=== PATIENT | male | born 1960 | race Caucasian/White ===

== ENCOUNTER 2018-02-12 11:49 | Emergency (ER) | payer OTHER, MEDICARE ==
[2018-02-12 12:17] VITALS: BP 123/86; PULSE 77; RESP 18; TEMP 98.2
[2018-02-12] MEDS ORDERED: ORPHENADRINE 30 MG/ML 2 ML VIAL IM STA (13:57)
[2018-02-12] MEDS ORDERED: KETOROLAC 60 MG/2 ML VIAL IM STA (13:57)
--- NOTE | 2018-02-12 14:15 | XR ---
EXAM TYPE: LUMBAR SPINE X RAY SERIES COMPARISON: NONE HISTORY: Pain TECHNIQUE: 4 views are submitted. FINDINGS: Alignment is anatomic. The pedicles are intact. The transverse processes are intact. There is no s pondylolysis or spondylolisthesis. Multilevel hypertrophic change seen with degenerative disc diseas e L4-5, L5-S1. Multilevel facet arthropathy noted. No compression deformities. IMPRESSION: 1. Mild degenerative disc disease and facet arthropathy.
--- NOTE | 2018-02-12 14:19 | ED ---
Back Pain HPI - General Chief Complaint: Back Pain/Injury Stated Complaint: back pain Time Seen by Provider: 02/12/18 13:38 Source: patient Limitations: no limitations - History of Present Illness Initial Comments: 58-year-old male present emergency Department chief complaint low back pain. Patient states this started after leaving his doctor's office a few days ago. Patient does have a history of chronic back pain states that he usually gets injections 1 some year. Patient states that he's not had these recently. Patient states she's also had disc surgery in his lumbar region. Patient denies any bowel, bladder incontinence or retention. He states he only has pain with movement which makes it difficult to walk though he has no associated weakness. Denies any abdominal pain, flank pain, upper back pain, chest pain or shortness of breath. He states only does not take any pain medication but states that the pain is getting unbearable. He states he has pain areas on his left leg with mild numbness and tingling but denies any saddle anesthesias. - Related Data Home Medications Medication Instructions Recorded Confirmed Aspirin 325 mg PO DAILY 02/12/18 02/12/18 Atorvastatin Calcium [Lipitor] 20 mg PO HS 02/12/18 02/12/18 HYDROcodone/APAP 10-325MG [[place] 1 tab PO Q6HR PRN 02/12/18 02/12/18 10-325] Lisinopril [Prinivil] 5 mg PO DAILY 02/12/18 02/12/18 sitaGLIPtin PHOS/metFORMIN HCL 50 - 1,000 mg PO BID 02/12/18 02/12/18 [Janumet 50-1,000 mg Tablet] Previous Rx's Medication Instructions Recorded Hydrocodone/Acetaminophen [[place] 1 tab PO Q6HR PRN #12 tab 02/12/18 5-325] Ibuprofen [Motrin] 600 mg PO Q8HR PRN #30 tab 02/12/18 Orphenadrine [Norflex] 100 mg PO Q12H #14 tablet.er 02/12/18 Allergies Allergy/AdvReac Type Severity Reaction Status Date / Time No Known Allergies Allergy Verified 02/12/18 12:15 Review of Systems ROS Statement: Those systems with pertinent positive or pertinent negative responses have been documented in the HPI. ROS Other: All systems not noted in ROS Statement are negative. Past Medical History Past Medical History: No Reported History History of Any Multi-Drug Resistant Organisms: None Reported Past Surgical History: Back Surgery, Ear Surgery Past Psychological History: No Psychological Hx Reported Smoking Status: Former smoker Past Alcohol Use History: Rare Past Drug Use History: None Reported General Exam Limitations: no limitations General appearance: alert, in no apparent distress Head exam: Present: atraumatic, normocephalic, normal inspection Respiratory exam: Present: normal lung sounds bilaterally. Absent: respiratory distress, wheezes, rales, rhonchi, stridor Cardiovascular Exam: Present: regular rate, normal rhythm, normal heart sounds. Absent: systolic murmur, diastolic murmur, rubs, gallop, clicks GI/Abdominal exam: Present: soft, normal bowel sounds. Absent: distended, tenderness, guarding, rebound, rigid Extremities exam: Present: other (Bilateral lower extremity strength equal bilaterally, neurovascular intact to call equal warmth pedal pulses equal) Back exam: Present: full ROM, tenderness (Mild left lower lumbar region), paraspinal tenderness, other (Pain with left straight leg raise). Absent: CVA tenderness (R), CVA tenderness (L), vertebral tenderness Neurological exam: Present: alert, oriented X3, CN II-XII intact, reflexes normal. Absent: motor sensory deficit Skin exam: Present: warm, dry, intact, normal color. Absent: rash Course Vital Signs 02/12/18 12:15 Temperature 98.2 F Pulse Rate 77 Respiratory 18 Rate Blood Pressure 123/86 O2 Sat by Pulse 96 Oximetry Medical Decision Making - Medical Decision Making 58-year-old male presented for low back pain. Patient has acute lumbar strain with chronic changes noted on x-ray. He has no red flag symptoms. Patient we given pain control, muscle relaxers. Patient will follow-up with PCP and advised to follow-up for his injections of his lumbar spine. Disposition Clinical Impression: Acute exacerbation of chronic low back pain Disposition: HOME SELF-CARE Condition: Stable Instructions: Acute Low Back Pain (ED) Additional Instructions: Please return to the Emergency Department if symptoms worsen or any other concerns. Prescriptions: Hydrocodone/Acetaminophen [[place] 5-325] 1 tab PO Q6HR PRN #12 tab PRN Reason: Pain Ibuprofen [Motrin] 600 mg PO Q8HR PRN #30 tab PRN Reason: Pain Orphenadrine [Norflex] 100 mg PO Q12H #14 tablet.er Is patient prescribed a controlled substance at d/c from ED?: Yes When asked, does pt state using other controlled substances?: No If prescribed controlled substance>3 days was MAPS reviewed?: Prescribed <3 Days If opioid is for acute pain is fill amount 7 days or less?: Yes If Rx opioid, was Start Talking consent form obtained?: Yes Referrals: Carol Sanz MD [Primary Care Provider] - 1-2 days Time of Disposition: 14:23
== END 2018-02-12 14:47 | disposition home or self-care (01) ==
LOC: EC 11:49
DX: S39.012A Strain of muscle, fascia and tendon of lower back, initial encounter (principal); G89.29 Other chronic pain; M51.36 Other intervertebral disc degeneration, lumbar region; M46.96 Unspecified inflammatory spondylopathy, lumbar region; Z98.890 Other specified postprocedural states; Z87.891 Personal history of nicotine dependence; Z79.82 Long term (current) use of aspirin; Z79.84 Long term (current) use of oral hypoglycemic drugs; Z79.899 Other long term (current) drug therapy; X58.XXXA Exposure to other specified factors, initial encounter
CPT/HCPCS: 72110; 99283; 96372 ×2; J2360; J1885

== ENCOUNTER 2018-03-11 10:33 | Emergency (ER) | payer MEDICARE, OTHER ==
[2018-03-11 10:43] VITALS: BP 129/75; PULSE 79; TEMP 97.7
--- NOTE | 2018-03-11 11:00 | ED ---
URI HPI - General Chief Complaint: Upper Respiratory Infection Stated Complaint: cough Time Seen by Provider: 03/11/18 10:44 Source: patient, RN notes reviewed Mode of arrival: ambulatory Limitations: no limitations - History of Present Illness Initial Comments: 58-year-old male presents emergency Department with chief complaint of cough congestion. Patient states he has been sick for last 3 days. He does have underlying COPD. Patient denies any fever, chills, headache, dizziness. Patient states he does have mild nasal congestion, sore throat. Does state that is improving. Patient states his cough is nonproductive at this time. He does complain that his ribs hurt from coughing denies any nausea vomiting diarrhea constipation. Patient denies chest pain - Related Data Home Medications Medication Instructions Recorded Confirmed Aspirin 325 mg PO DAILY 02/12/18 02/12/18 Atorvastatin Calcium [Lipitor] 20 mg PO HS 02/12/18 02/12/18 HYDROcodone/APAP 10-325MG [[place] 1 tab PO Q6HR PRN 02/12/18 02/12/18 10-325] Lisinopril [Prinivil] 5 mg PO DAILY 02/12/18 02/12/18 sitaGLIPtin PHOS/metFORMIN HCL 50 - 1,000 mg PO BID 02/12/18 02/12/18 [Janumet 50-1,000 mg Tablet] Previous Rx's Medication Instructions Recorded Hydrocodone/Acetaminophen [[place] 1 tab PO Q6HR PRN #12 tab 02/12/18 5-325] Ibuprofen [Motrin] 600 mg PO Q8HR PRN #30 tab 02/12/18 Orphenadrine [Norflex] 100 mg PO Q12H #14 tablet.er 02/12/18 Azithromycin [Zithromax Z-pack] 0 mg PO DIRECTED #1 pack 03/11/18 predniSONE 50 mg PO DAILY #5 tab 03/11/18 Allergies Allergy/AdvReac Type Severity Reaction Status Date / Time No Known Allergies Allergy Verified 03/11/18 10:43 Review of Systems ROS Statement: Those systems with pertinent positive or pertinent negative responses have been documented in the HPI. ROS Other: All systems not noted in ROS Statement are negative. Past Medical History Past Medical History: No Reported History Additional Past Medical History / Comment(s): back pain History of Any Multi-Drug Resistant Organisms: None Reported Past Surgical History: Back Surgery, Ear Surgery Past Psychological History: No Psychological Hx Reported Smoking Status: Former smoker Past Alcohol Use History: Rare Past Drug Use History: None Reported General Exam Limitations: no limitations General appearance: alert, in no apparent distress Head exam: Present: atraumatic, normocephalic, normal inspection Eye exam: Present: normal appearance, PERRL, EOMI. Absent: scleral icterus, conjunctival injection, periorbital swelling ENT exam: Present: normal exam, normal oropharynx, mucous membranes moist, TM's normal bilaterally, normal external ear exam Neck exam: Present: normal inspection. Absent: tenderness, meningismus, lymphadenopathy Respiratory exam: Present: normal lung sounds bilaterally. Absent: respiratory distress, wheezes, rales, rhonchi, stridor Cardiovascular Exam: Present: regular rate, normal rhythm, normal heart sounds. Absent: systolic murmur, diastolic murmur, rubs, gallop, clicks GI/Abdominal exam: Present: soft, normal bowel sounds. Absent: distended, tenderness, guarding, rebound, rigid Back exam: Absent: CVA tenderness (R), CVA tenderness (L) Skin exam: Present: warm, dry, intact, normal color. Absent: rash Course Vital Signs 03/11/18 03/11/18 10:40 11:28 Temperature 97.7 F Pulse Rate 79 Respiratory 20 18 Rate Blood Pressure 129/75 O2 Sat by Pulse 98 Oximetry Medical Decision Making - Medical Decision Making 58-year-old male presented for cough congestion. Chest x-ray was obtained no acute abnormality. Patient we treated for mild COPD exacerbation/acute bronchitis. Patient placed on azithromycin and steroids. Return parameters were discussed. Disposition Clinical Impression: COPD (chronic obstructive pulmonary disease), Bronchitis Disposition: HOME SELF-CARE Condition: Stable Instructions: COPD (Chronic Obstructive Pulmonary Disease) (ED) Additional Instructions: Please return to the Emergency Department if symptoms worsen or any other concerns. Prescriptions: Azithromycin [Zithromax Z-pack] 0 mg PO DIRECTED #1 pack predniSONE 50 mg PO DAILY #5 tab Is patient prescribed a controlled substance at d/c from ED?: No Referrals: Carol Sanz MD [Primary Care Provider] - 1-2 days Time of Disposition: 12:00
[2018-03-11 11:33] VITALS: RESP 18
--- NOTE | 2018-03-11 11:37 | XR ---
EXAMINATION TYPE: XR chest 2V DATE OF EXAM: 03/11/2018 HISTORY: Cough. REFERENCE: Previous study dated 05/20/2015. FINDINGS: There is a partial eventration of the right hemidiaphragm and chronic elevation of the left hemidiaphragm. There is minimal atelectasis at the left lung base. This appears chronic. Lungs otherwise clear. Pleu ral space are clear. The heart is not enlarged. IMPRESSION: NO ACUTE INTRATHORACIC ABNORMALITY.
[2018-03-11] MEDS ORDERED: ACET/COD 300 MG/30 MG STARTER PACK 6 TAB BTL PO STA (12:03)
== END 2018-03-11 12:15 | disposition home or self-care (01) ==
LOC: EC 10:33
DX: J44.0 Chronic obstructive pulmonary disease with (acute) lower respiratory infection (principal); J44.1 Chronic obstructive pulmonary disease with (acute) exacerbation; J20.9 Acute bronchitis, unspecified; Z87.891 Personal history of nicotine dependence; Z79.82 Long term (current) use of aspirin; Z79.84 Long term (current) use of oral hypoglycemic drugs; Z79.899 Other long term (current) drug therapy; Z87.39 Personal history of other diseases of the musculoskeletal system and connective tissue
CPT/HCPCS: 71046; 99283

== ENCOUNTER → 2018-03-21 | Outpatient (CLI) | payer MEDICARE, OTHER ==
--- NOTE | 2018-03-21 09:07 | CTL ---
EXAMINATION TYPE: CT Low Dose Lung DATE OF EXAM ORDERED: 03/21/2018 HISTORY: Long-term tobacco use. Lung cancer screening CT DLP: 141.[address] CTDI: 4.3 mGy Automated exposure control for dose reduction was used. SCREENING VISIT: Initial study COMPARISON: None TECHNIQUE: Low dose computed tomography scan was performed through the chest at 1 mm thick sections a nd reconstructed images in the coronal plane at [address] DIAGNOSTIC QUALITY: Satisfactory FINDINGS: LUNG NODULES: None. LUNGS: COPD: Severity: Mild to borderline moderate Fibrosis: Severity: Minimal Lymph nodes: None Other findings: None BILATERAL PLEURAL SPACE: Effusion: None Calcification: None Thickening: None Pneumothorax: None HEART: Heart Size: Normal Coronary calcification: Moderate LAD and left circumflex Pericardial effusion: None OTHER FINDINGS: Upper abdomen: Visualized liver is diffusely hypodense consistent with fatty infiltration. Bony thorax: Mild to moderate multilevel lateral spurring Supraclavicular region: Visualized thyroid is small in size Other: Mild calcified plaque aortic arch IMPRESSION: No suspicious nodules or masses. FOLLOW UP CT CHEST RECOMMENDATION: Annual low-dose lung screening CT CT LUNG RAD: Lung-Rad 1 Negative Recommendation: Moderate coronary artery calcification, correlate clinically with additional cardiac risk factors.
== END | disposition home or self-care (01) ==
LOC: RADCTMAIN 08:02
PROVIDERS: ATTEND Internal Medicine
DX: Z12.2 Encounter for screening for malignant neoplasm of respiratory organs (principal); Z87.891 Personal history of nicotine dependence

== ENCOUNTER → 2018-11-30 | Outpatient (CLI) | payer OTHER, MEDICARE | END | disposition home or self-care (01) | LOC: LABWHC1 06:40 | PROVIDERS: ATTEND Internal Medicine Cardiovascular Disease | DX: E78.2 Mixed hyperlipidemia (principal) | CPT/HCPCS: 36415; 80061; 84450; 84460 ==

== ENCOUNTER → 2018-12-10 | Outpatient (CLI) | payer OTHER, MEDICARE ==
[2018-12-10 19:02] LABS: ALT 133 U/L (10-49); AST 83 U/L (14-35)
== END | disposition home or self-care (01) ==
LOC: LABWHC1 09:02
PROVIDERS: ATTEND Internal Medicine Cardiovascular Disease
DX: I10 Essential (primary) hypertension (principal)
CPT/HCPCS: 36415; 84450; 84460

== ENCOUNTER → 2019-01-02 | Outpatient (CLI) | payer OTHER, MEDICARE ==
--- NOTE | 2019-01-02 09:42 | US ---
EXAMINATION TYPE: US abdomen complete DATE OF EXAM: 01/02/2019 COMPARISON: US 2014 CLINICAL HISTORY: R74.8 Abnormal levels of other serum enzymes. Elevated liver enzymes, RUQ and back pain x couple months EXAM MEASUREMENTS: Liver Length: 19.5 cm Gallbladder Wall: 0.2 cm CBD: 0.4 cm Spleen: 12.4 cm Right Kidney: 11.4 x 5.9 x 6.3 cm Left Kidney: 11.4 x 6.9 x 5.0 cm Pancreas: visualized portions wnl, limited by overlying midline bowel gas Liver: There is increased echogenicity of the hepatic parenchyma with diminished visualization of th e portal triads most commonly relating to hepatic steatosis and limiting evaluation for underlying he patic masses. Gallbladder: wnl Evidence for sonographic Younger's sign: yes CBD: visualized portions wnl, limited by overlying bowel gas Spleen: wnl Right Kidney: wnl Left Kidney: wnl Upper IVC: wnl Abd Aorta: Within normal limits The intrahepatic portion of the IVC and proximal abdominal aorta are within normal limits. There is no evidence of cholelithiasis. Common bile duct is unremarkable. The visualized portions of the munoz creas are homogenous. The spleen is unremarkable. Kidneys are symmetric and free of hydronephrosis. No renal lesions are seen. IMPRESSION: 1. Sonographic findings most commonly related to hepatic steatosis as seen on the prior ultrasound of 2014. 2. No sonographic evidence of cholelithiasis nor acute cholecystitis. Positive sonographic Younger sig n is seen however and therefore HIDA scan with CCK could evaluate for biliary dyskinesia or chronic c holecystitis.
[2019-01-02 09:44] LABS: HCT 47.1 % (39.0-53.0); HGB 15.7 gm/dL (13.0-17.5); MCH 30.6 pg (25.0-35.0); MCHC 33.2 g/dL (31.0-37.0); MCV 92.1 fL (80.0-100.0); Mean Platelet Volume 8.4; Platelet Count 170 k/uL (150-450); RBC 5.11 m/uL (4.30-5.90); RDW 12.6 % (11.5-15.5); WBC 5.9 k/uL (3.8-10.6)
[2019-01-02 10:04] LABS: ALT 142 U/L (21-72); AST 75 U/L (17-59); African American GFR (CKD) >90 (>60 ml/min/1.73 sqM); Albumin 4.2 g/dL (3.5-5.0); Alkaline Phosphatase 119 U/L (38-126); Anion Gap 8 mmol/L; Bilirubin, Delta 0.1 mg/dL (0.0-0.2); Bilirubin,Unconjugated 0.4 mg/dL (0.0-1.1); Blood Urea Nitrogen 10 mg/dL (9-20); Calcium 9.7 mg/dL (8.4-10.2); Carbon Dioxide 29 mmol/L (22-30); Chloride 104 mmol/L (98-107); Glucose 99 mg/dL (74-99); Potassium 4.7 mmol/L (3.5-5.1); Sodium 141 mmol/L (137-145); Total Bilirubin 0.5 mg/dL (0.2-1.3); Total Protein 7.1 g/dL (6.3-8.2)
[2019-01-02 15:37] LABS: Hepatitis A Antibody IgM Non-Reactive (Non-Reactive); Hepatitis B Core IgM Non-Reactive (Non-Reactive); Hepatitis B Surface Antigen Non-Reactive (Non-Reactive); Hepatitis C IgG Antibody Non-Reactive (Non-Reactive)
[2019-01-02 16:33] LABS: % Iron Saturation 26.54 (15.00-50.00); Iron 82 ug/dL (65-175); Total Iron Binding Capacity 309 ug/dL (228-460)
[2019-01-02 16:41] LABS: Ferritin 115.9 ng/mL (22.0-322.0)
[2019-01-02 18:06] LABS: Protein, Total 6.4 g/dL (6.2-8.2)
[2019-01-02 18:35] LABS: Gliadin AB IgA, Deaminated NEGATIVE (NEGATIVE); Gliadin AB IgA, Unit <0.2 U/mL; Gliadin AB IgG, Deaminated NEGATIVE (NEGATIVE)
[2019-01-03 11:10] LABS: Liver/Kidney Microsome Antibod 3.4 UNITS (<=20)
[2019-01-03 12:21] LABS: Ceruloplasmin 22.9 mg/dL (20.0-60.0)
[2019-01-03 13:38] LABS: Albumin 3.65 g/dL (3.80-4.90); Gamma Globulin 0.73 g/dL (0.70-1.50)
== END | disposition home or self-care (01) ==
LOC: RADUSWWP 08:07
PROVIDERS: ATTEND Internal Medicine
DX: K76.0 Fatty (change of) liver, not elsewhere classified (principal); R74.8 Abnormal levels of other serum enzymes
CPT/HCPCS: 36415; 76700; 80048; 80074; 80076; 82103; 82390; 82728; 83516; 83540; 83550; 84165; 85027; 86376

== ENCOUNTER 2019-06-07 08:30 | Emergency (ER) | payer OTHER, MEDICARE ==
[2019-06-07 08:38] VITALS: RESP 18; TEMP 98.1
[2019-06-07] MEDS ORDERED: KETOROLAC 60 MG/2 ML VIAL IVP STA (08:57)
--- NOTE | 2019-06-07 09:02 | ED ---
General Adult HPI - General Chief complaint: Chest Pain Stated complaint: back and side pain Time Seen by Provider: 06/07/19 08:35 Source: patient, RN notes reviewed, old records reviewed Mode of arrival: ambulatory Limitations: no limitations - History of Present Illness Initial comments: This is a 59-year-old male with past medical history significant for diabetes hypertension high cholesterol. Patient states for a week now he's been having mid back pain and lateral chest wall pain as well as some reproducible chest pain in the center next to his sternum bilaterally. Patient states all the pain is reproducible and all of the pain is worse with movement or bending. Patient states she's not short of breath. Patient states she's had no fever or chills. Patient denies any injury or heavy lifting. Patient states if he takes a hot shower it does improve the pain. Patient also states BenGay seemed to improve the pain. Patient is not taking any Tylenol or Motrin. Patient denies any headache patient denies numbness weakness. Patient denies any abdominal pain patient denies nausea vomiting diarrhea. patient states the pain is consistent and does not go away but does wax and wane. - Related Data Home Medications Medication Instructions Recorded Confirmed Aspirin 325 mg PO DAILY 02/12/18 02/12/18 Atorvastatin Calcium [Lipitor] 20 mg PO HS 02/12/18 02/12/18 HYDROcodone/APAP 10-325MG [[place] 1 tab PO Q6HR PRN 02/12/18 02/12/18 10-325] Lisinopril [Prinivil] 5 mg PO DAILY 02/12/18 02/12/18 sitaGLIPtin PHOS/metFORMIN HCL 50 - 1,000 mg PO BID 02/12/18 02/12/18 [Janumet 50-1,000 mg Tablet] Previous Rx's Medication Instructions Recorded Hydrocodone/Acetaminophen [[place] 1 tab PO Q6HR PRN #12 tab 02/12/18 5-325] Ibuprofen [Motrin] 600 mg PO Q8HR PRN #30 tab 02/12/18 Orphenadrine [Norflex] 100 mg PO Q12H #14 tablet.er 02/12/18 Azithromycin [Zithromax Z-pack] 0 mg PO DIRECTED #1 pack 03/11/18 predniSONE 50 mg PO DAILY #5 tab 03/11/18 Ketorolac [Toradol] 10 mg PO Q6HR #15 tab 06/07/19 Allergies Allergy/AdvReac Type Severity Reaction Status Date / Time No Known Allergies Allergy Verified 06/07/19 08:38 Review of Systems ROS Statement: Those systems with pertinent positive or pertinent negative responses have been documented in the HPI. ROS Other: All systems not noted in ROS Statement are negative. Past Medical History Past Medical History: No Reported History, Dementia, Hypertension Additional Past Medical History / Comment(s): back pain History of Any Multi-Drug Resistant Organisms: None Reported Past Surgical History: Back Surgery, Ear Surgery Past Psychological History: No Psychological Hx Reported Smoking Status: Former smoker Past Alcohol Use History: Rare Past Drug Use History: None Reported General Exam - General Exam Comments Initial Comments: GENERAL: Patient is well-developed and well-nourished. Patient is nontoxic and well- hydrated and is in mild distress. ENT: Neck is soft and supple. No significant lymphadenopathy is noted. Oropharynx is clear. Moist mucous membranes. Neck has full range of motion without eliciting any pain. EYES: The sclera were anicteric and conjunctiva were pink and moist. Extraocular movements were intact and pupils were equal round and reactive to light. Eyelids were unremarkable. PULMONARY: Unlabored respirations. Good breath sounds bilaterally. No audible rales rh onchi or wheezing was noted. CARDIOVASCULAR: There is a regular rate and rhythm without any murmurs gallops or rubs. Patient has reproducible chest pain on both sides of the sternum as well as in the lateral chest wall. Patient also has pain in the thoracic back region lateral to the spine. ABDOMEN: Soft and nontender with normal bowel sounds. No palpable organomegaly was noted. There is no palpable pulsatile mass. SKIN: Skin is clear with no lesions or rashes and otherwise unremarkable. NEUROLOGIC: Patient is alert and oriented x3. Cranial nerves II through XII are grossly intact. Motor and sensory are also intact. Normal speech, volume and content. Symmetrical smile. MUSCULOSKELETAL: Normal extremities with adequate strength and full range of motion. No lower extremity swelling or edema. No calf tenderness. Reproducible pain as above LYMPHATICS: No significant lymphadenopathy is noted PSYCHIATRIC: Normal psychiatric evaluation. 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 Patient's EKG shows no ST segment elevation or depression. I gave the patient a shot of Toradol and he stated it made his symptoms almost completely go away. Patient states he hasn't taken any medications at home. I will send the patient home on any anti-inflammatory. - Lab Data Result diagrams: 06/07/19 08:45 06/07/19 08:45 Lab Results 06/07/19 06/07/19 06/07/19 Range/Units 08:45 08:45 08:45 WBC 7.6 (3.8-10.6) k/uL RBC 5.41 (4.30-5.90) m/uL Hgb 16.5 (13.0-17.5) gm/dL Hct 49.2 (39.0-53.0) % MCV 90.8 (80.0-100.0) fL MCH 30.5 (25.0-35.0) pg MCHC 33.5 (31.0-37.0) g/dL RDW 12.7 (11.5-15.5) % Plt Count 129 L (150-450) k/uL Neutrophils % 48 % Lymphocytes % 40 % Monocytes % 6 % Eosinophils % 4 % Basophils % 1 % Neutrophils # 3.6 (1.3-7.7) k/uL Lymphocytes # 3.1 (1.0-4.8) k/uL Monocytes # 0.4 (0-1.0) k/uL Eosinophils # 0.3 (0-0.7) k/uL Basophils # 0.0 (0-0.2) k/uL PT 10.1 (9.0-12.0) sec INR 1.0 (<1.2) APTT 25.3 (22.0-30.0) sec Sodium 136 L (137-145) mmol/L Potassium 4.5 (3.5-5.1) mmol/L Chloride 101 (98-107) mmol/L Carbon Dioxide 25 (22-30) mmol/L Anion Gap 10 mmol/L BUN 13 (9-20) mg/dL Creatinine 0.85 (0.66-1.25) mg/dL Est GFR (CKD-EPI)AfAm >90 (>60 ml/min/1.73 sqM) Est GFR (CKD-EPI)NonAf >90 (>60 ml/min/1.73 sqM) Glucose 157 H (74-99) mg/dL Calcium 9.5 (8.4-10.2) mg/dL Magnesium 2.0 (1.6-2.3) mg/dL Total Bilirubin 0.4 (0.2-1.3) mg/dL AST 70 H (17-59) U/L ALT 145 H (4-49) U/L Alkaline Phosphatase 134 H (38-126) U/L Troponin I (0.000-0.034) ng/mL Total Protein 7.5 (6.3-8.2) g/dL Albumin 4.5 (3.5-5.0) g/dL 06/07/19 Range/Units 08:45 WBC (3.8-10.6) k/uL RBC (4.30-5.90) m/uL Hgb (13.0-17.5) gm/dL Hct (39.0-53.0) % MCV (80.0-100.0) fL MCH (25.0-35.0) pg MCHC (31.0-37.0) g/dL RDW (11.5-15.5) % Plt Count (150-450) k/uL Neutrophils % % Lymphocytes % % Monocytes % % Eosinophils % % Basophils % % Neutrophils # (1.3-7.7) k/uL Lymphocytes # (1.0-4.8) k/uL Monocytes # (0-1.0) k/uL Eosinophils # (0-0.7) k/uL Basophils # (0-0.2) k/uL PT (9.0-12.0) sec INR (<1.2) APTT (22.0-30.0) sec Sodium (137-145) mmol/L Potassium (3.5-5.1) mmol/L Chloride (98-107) mmol/L Carbon Dioxide (22-30) mmol/L Anion Gap mmol/L BUN (9-20) mg/dL Creatinine (0.66-1.25) mg/dL Est GFR (CKD-EPI)AfAm (>60 ml/min/1.73 sqM) Est GFR (CKD-EPI)NonAf (>60 ml/min/1.73 sqM) Glucose (74-99) mg/dL Calcium (8.4-10.2) mg/dL Magnesium (1.6-2.3) mg/dL Total Bilirubin (0.2-1.3) mg/dL AST (17-59) U/L ALT (4-49) U/L Alkaline Phosphatase (38-126) U/L Troponin I <0.012 (0.000-0.034) ng/mL Total Protein (6.3-8.2) g/dL Albumin (3.5-5.0) g/dL Disposition Clinical Impression: Musculoskeletal chest pain Disposition: HOME SELF-CARE Condition: Good Instructions (If sedation given, give patient instructions): Chest Pain (ED) Prescriptions: Ketorolac [Toradol] 10 mg PO Q6HR #15 tab Is patient prescribed a controlled substance at d/c from ED?: No Referrals: Carol Sanz MD [Primary Care Provider] - 1-2 days Time of Disposition: 10:30
--- NOTE | 2019-06-07 09:27 | XR ---
EXAMINATION TYPE: XR chest 2V DATE OF EXAM: 06/07/2019 COMPARISON: 03/11/2018 HISTORY: Shortness of breath TECHNIQUE: Frontal and lateral views of the chest are obtained. FINDINGS: Scattered senescent parenchymal changes noted. Hyperinflation compatible with COPD. No evidence for infiltrate. No evidence for atelectasis. Heart size is stable. Mediastinal structures are stable and grossly unremarkable. No evidence for hilar prominence. Degenerative changes dorsal spine. IMPRESSION: 1. No evidence for acute pulmonary disease.
[2019-06-07 09:29] LABS: Basophils % (A) 1 %; Eosinophils # (A) 0.3 k/uL (0-0.7); Eosinophils % (A) 4 %; HCT 49.2 % (39.0-53.0); HGB 16.5 gm/dL (13.0-17.5); Lymphocytes # (A) 3.1 k/uL (1.0-4.8); Lymphocytes % (A) 40 %; MCH 30.5 pg (25.0-35.0); MCHC 33.5 g/dL (31.0-37.0); MCV 90.8 fL (80.0-100.0); Mean Platelet Volume 9.1; Monocytes # (A) 0.4 k/uL (0-1.0); Monocytes % (A) 6 %; Neutrophils # (A) 3.6 k/uL (1.3-7.7); Neutrophils % (A) 48 %; Platelet Count 129 k/uL (150-450); RBC 5.41 m/uL (4.30-5.90); RDW 12.7 % (11.5-15.5); WBC 7.6 k/uL (3.8-10.6)
[2019-06-07 09:40] LABS: ALT 145 U/L (4-49); AST 70 U/L (17-59); African American GFR (CKD) >90 (>60 ml/min/1.73 sqM); Albumin 4.5 g/dL (3.5-5.0); Alkaline Phosphatase 134 U/L (38-126); Anion Gap 10 mmol/L; Blood Urea Nitrogen 13 mg/dL (9-20); Calcium 9.5 mg/dL (8.4-10.2); Carbon Dioxide 25 mmol/L (22-30); Chloride 101 mmol/L (98-107); Glucose 157 mg/dL (74-99); Non-African American GFR(CKD) >90 (>60 ml/min/1.73 sqM); Potassium 4.5 mmol/L (3.5-5.1); Sodium 136 mmol/L (137-145); Total Bilirubin 0.4 mg/dL (0.2-1.3); Total Protein 7.5 g/dL (6.3-8.2)
[2019-06-07 09:47] LABS: Partial Thromboplastin Time 25.3 sec (22.0-30.0); Prothrombin Time 10.1 sec (9.0-12.0)
[2019-06-07 10:37] VITALS: BP 127/80; PULSE 74
== END 2019-06-07 10:32 | disposition home or self-care (01) ==
LOC: EC 08:30
DX: R07.9 Chest pain, unspecified (principal); M54.9 Dorsalgia, unspecified; I10 Essential (primary) hypertension; Z79.82 Long term (current) use of aspirin; Z79.899 Other long term (current) drug therapy; Z87.891 Personal history of nicotine dependence
CPT/HCPCS: 36415; 93005; 80053; 83735; 84484; 85025; 85610; 85730; 71046; 99285; 96374; J1885

== ENCOUNTER → 2021-03-26 | Outpatient (CLI) | payer OTHER ==
--- NOTE | 2021-03-27 02:54 | MR ---
EXAMINATION TYPE: MR brain wo/w con DATE OF EXAM: 03/26/2021 COMPARISON: None HISTORY: Visual disturbance, left side head pain, family hx malignant neoplasm. CONTRAST: Standard multiplanar, multisequence MRI departmental protocol images were obtained without contrast a nd with 11 mL intravenous Gadavist gadolinium contrast. Ventricles have fairly normal size. There is no mass effect or midline shift. There is no evidence of intracranial hemorrhage. There is minimal atrophy appropriate for age. Diffusion images show no evid ence of acute infarct. On the T2 and FLAIR images there are scattered foci of increased signal measuring up to 4 mm in the g ray-white matter junction of both cerebral hemispheres. Total number is approximately 10. The brainst em is intact. Corpus callosum appears intact and sella turcica appears normal. There is no evidence o f orbital mass. There is moderate mucosal thickening in the paranasal sinuses. The contrast images show no pathologic enhancement. There is normal enhancement of the venous sinuses . IMPRESSION: There are scattered small white matter high signal foci that could relate to microvascular ischemia. No evidence of cortical infarct. There is pansinusitis.
== END | disposition home or self-care (01) ==
LOC: RADMRIMAIN 18:24
PROVIDERS: ATTEND Nurse Practitioner Family
DX: J32.4 Chronic pansinusitis (principal); R90.89 Other abnormal findings on diagnostic imaging of central nervous system; Z80.8 Family history of malignant neoplasm of other organs or systems
CPT/HCPCS: 70553; A9585

== ENCOUNTER → 2023-01-25 | Outpatient (CLI) | payer MEDICARE ==
--- NOTE | 2023-01-25 14:26 | US ---
EXAMINATION TYPE: US abdomen complete DATE OF EXAM: 01/25/2023 COMPARISON: 01/02/2019 CLINICAL INDICATION: Male, 63 years old with history of R10.12 LUQ PAIN, R10.11 RUQ PIAN; Pain x 1 we ek within RUQ and LUQ. TECHNIQUE: Multiple sonographic images of the abdomen are obtained. FINDINGS: EXAM MEASUREMENTS: Liver Length: 18.3 cm Gallbladder Wall: 0.21 cm CBD: 0.26 cm Spleen: 11.9 cm Right Kidney: 11.7 x 5.9 x 6.4 cm Left Kidney: 11.9 x 5.5 x 7.7 cm MACHINE PULLER NOTES: Limited due to overlying bowel gas. Pancreas: Not well seen Liver: Enlarged. No focal lesion seen. Gallbladder: Multiple folds seen. Slightly limited. Evidence for sonographic Younger's sign: No CBD: Appears wnl Spleen: Appears wnl Right Kidney: No hydronephrosis or masses seen Left Kidney: No hydronephrosis or masses seen Upper IVC: Appears wnl Abd Aorta: Proximal segment appears ectatic measuring 2.6 x 2.9 cm. Distal aorta and iliacs were obs cured. IMPRESSION: 1. Mild hepatomegaly at 18.3 cm. The previous fatty infiltration seen in 2019 appears to have definit jeramie improved. 2. No gallstones or biliary ductal dilatation. 3. 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
== END | disposition home or self-care (01) ==
LOC: RADUSWWP 13:19
PROVIDERS: ATTEND Family Medicine
DX: I77.811 Abdominal aortic ectasia (principal); K76.0 Fatty (change of) liver, not elsewhere classified; R16.0 Hepatomegaly, not elsewhere classified; R10.12 Left upper quadrant pain; R10.11 Right upper quadrant pain
CPT/HCPCS: 76700

== ENCOUNTER 2023-12-20 10:57 | Observation (INO) | payer BC, MEDICARE ==
[2023-12-20 11:41] LABS: Basophils % (A) 0 %; Eosinophils # (A) 0.2 k/uL (0-0.7); Eosinophils % (A) 3 %; HCT 46.3 % (39.0-53.0); HGB 15.3 gm/dL (13.0-17.5); Lymphocytes # (A) 1.6 k/uL (1.0-4.8); Lymphocytes % (A) 20 %; MCH 31.9 pg (25.0-35.0); MCHC 33.1 g/dL (31.0-37.0); MCV 96.4 fL (80.0-100.0); Mean Platelet Volume 10.7; Monocytes # (A) 0.5 k/uL (0-1.0); Monocytes % (A) 6 %; Neutrophils # (A) 5.9 k/uL (1.3-7.7); Neutrophils % (A) 71 %; WBC 8.4 k/uL (3.8-10.6)
--- NOTE | 2023-12-20 11:46 | XR ---
EXAMINATION TYPE: XR chest 2V DATE OF EXAM: 12/20/2023 COMPARISON: 06/07/2019 TECHNIQUE: PA and lateral views submitted. HISTORY: Chest pain FINDINGS: The lungs are clear and there is no pneumothorax, pleural effusion, or focal pneumonia. Heart size normal and no overt failure. Osseous structures demonstrate hypertrophic and degenerative changes of the spine. IMPRESSION: 1. No acute process. [facility], , 12/20/2023 11:43 AM
--- NOTE | 2023-12-20 11:58 | ED ---
General Adult HPI - General Chief complaint: Recheck/Abnormal Lab/Rx Stated complaint: Heart blockage Time Seen by Provider: 12/20/23 11:13 Source: patient, RN notes reviewed, old records reviewed Mode of arrival: ambulatory Limitations: no limitations - History of Present Illness Initial comments: 63-year-old male presents emergency department chief complaint of abnormal stress test. Patient states he had a nuclear stress test yesterday at cardiology along with an echocardiogram. Patient states he received a phone call yesterday afternoon stating that it was abnormal and he needed to present to the emergency department. Patient states he does present today he did have an episode of chest pain which she took 2 full dose aspirin and symptoms re solved. Patient has a history of hyperlipidemia hypertension diabetes along with current smoking status. Patient does admit that he has COPD does not have any shortness of breath. Denies any leg pain or leg swelling. Patient has had no prior cardiac stents. - Related Data Home Medications Medication Instructions Recorded Confirmed lisinopriL [Prinivil] 5 mg PO DAILY 02/12/18 06/07/19 sitaGLIPtin PHOS/metFORMIN HCL 1 tab PO BID 02/12/18 06/07/19 [Janumet 50-1,000 mg Tablet] Aspirin 325 mg PO HS 06/07/19 06/07/19 Allergies Allergy/AdvReac Type Severity Reaction Status Date / Time No Known Allergies Allergy Verified 12/20/23 11:10 Review of Systems ROS Statement: Those systems with pertinent positive or pertinent negative responses have been documented in the HPI. ROS Other: All systems not noted in ROS Statement are negative. Past Medical History Past Medical History: No Reported History, Dementia, Hypertension Additional Past Medical History / Comment(s): back pain History of Any Multi-Drug Resistant Organisms: None Reported Past Surgical History: Back Surgery, Ear Surgery Past Psychological History: No Psychological Hx Reported Smoking Status: Current every day smoker Past Alcohol Use History: Occasional Past Drug Use History: None Reported, Marijuana General Exam Limitations: no limitations General appearance: alert, in no apparent distress Head exam: Present: atraumatic, normocephalic, normal inspection Eye exam: Present: normal appearance, PERRL, EOMI. Absent: scleral icterus, conjunctival injection, periorbital swelling ENT exam: Present: normal exam, normal oropharynx, mucous membranes moist Neck exam: Present: normal inspection, full ROM. Absent: tenderness, meningismus, lymphadenopathy Respiratory exam: Present: normal lung sounds bilaterally. Absent: respiratory distress, wheezes, rales, rhonchi, stridor Cardiovascular Exam: Present: regular rate, normal rhythm, normal heart sounds. Absent: systolic murmur, diastolic murmur, rubs, gallop, clicks Neurological exam: Present: alert, oriented X3, CN II-XII intact, reflexes normal. Absent: motor sensory deficit Skin exam: Present: warm, dry, intact, normal color. Absent: rash Course Vital Signs 12/20/23 12/20/23 11:06 12:27 Temperature 97 F L Pulse Rate 72 66 Respiratory 18 18 Rate Blood Pressure 142/72 146/78 O2 Sat by Pulse 98 97 Oximetry EKG Findings - EKG Comments: EKG Findings:: EKG performed at 11: 18 sinus rhythm with a rate of 75 FL 150 QRS 98 QT/QTc 351/380 - EKG Results: EKG: interpreted by MARBELLA Medical Decision Making - Medical Decision Making Was pt. sent in by a medical professional or institution (Dr. PA, DIE TRIPPER, urgent c are, hospital, or [facility]...) When possible be specific @ -Cardiology Did you speak to anyone other than the patient for history (EMS, parent, family, police, friend...)? What history was obtained from this source @ -No Did you review nursing and triage notes (agree or disagree)? Why? @ -I reviewed and agree with nursing and triage notes Were old charts reviewed (outside hosp., previous admission, EMS record, old EKG, old radiological studies, urgent care reports/EKG's, [facility] records)? Report findings @ -No old charts were reviewed Differential Diagnosis (chest pain, altered mental status, abdominal pain women, abdominal pain men, vaginal bleeding, weakness, fever, dyspnea, syncope, headache, dizziness, GI bleed, back pain, seizure, CVA, palpatations, mental health, musculoskeletal)? @ -Differential Chest Pain: Stable Angina, Unstable Angina, STEMI, NSTEMI Aortic Dissection, Pneumothorax, Musculoskeletal, Esophageal Spasm GERD, Cholecystitis, Pancreatitis, Zoster, this is not meant to be an all-inclusive list. EKG interpreted by me (3pts min.). @ -As above X-rays interpreted by me (1pt min.). @ -Chest x-ray shows no acute cardiopulmonary process CT interpreted by me (1pt min.). @ -None done U/S interpreted by me (1pt. min.). @ -None done What testing was considered but not performed or refused? (CT, X-rays, U/S, labs)? Why? @ -None What meds were considered but not given or refused? Why? @ -None Did you discuss the management of the patient with other professionals (professionals i.e. , PA, DIE TRIPPER, lab, RT, psych nurse, director social, shoemaking finisher, teacher, fisheries technical officer, case managers)? Give summary @ - She for admission with cardiology consult Was smoking cessation discussed for >3mins.? @ -No Was critical care preformed (if so, how long)? @ -No Were there social determinants of health that impacted care today? How? (Homelessness, low income, unemployed, alcoholism, drug addiction, transportation, low edu. Level, literacy, decrease access to med. care, fci, rehab)? @ -No Was there de-escalation of care discussed even if they declined (Discuss DNR or withdrawal of care, Hospice)? DNR status @ -No What co-morbidities impacted this encounter? (DM, HTN, Smoking, COPD, CAD, Cancer, CVA, ARF, Chemo, Hep., AIDS, mental health diagnosis, sleep apnea, morbid obesity)? @ -None Was patient admitted / discharged? Hospital course, mention meds given and route, prescriptions, significant lab abnormalities, going to OR and other pertinent info. @ -Admitted patient had abnormal stress test yesterday. Patient is currently asymptomatic laboratory studies unremarkable EKG shows no acute changes. Patient is admitted Undiagnosed new problem with uncertain prognosis? @ -No Drug Therapy requiring intensive monitoring for toxicity (Heparin, Nitro, Insulin, Cardizem)? @ -No Were any procedures done? @ -No Diagnosis/symptom? @ -Chest pain, abnormal stress test Acute, or Chronic, or Acute on Chronic? @ -Acute Uncomplicated (without systemic symptoms) or Complicated (systemic symptoms)? @ -Complicated Side effects of treatment? @ -No Exacerbation, Progression, or Severe Exacerbation? @ -No Poses a threat to life or bodily function? How? (Chest pain, [place], [place], pneumonia, PE, COPD, DKA, ARF, appy, cholecystitis, CVA, Diverticulitis, Homicidal, Suicidal, threat to staff... and all critical care pts) @ -Yes possible underlying ACS, causing cardiac arrest - Lab Data Result diagrams: 12/20/23 11:30 12/20/23 11:30 Lab Results 12/20/23 12/20/23 12/20/23 Range/Units 11:30 11:30 11:30 WBC 8.4 (3.8-10.6) k/uL RBC 4.80 (4.30-5.90) m/uL Hgb 15.3 (13.0-17.5) gm/dL Hct 46.3 (39.0-53.0) % MCV 96.4 (80.0-100.0) fL MCH 31.9 (25.0-35.0) pg MCHC 33.1 (31.0-37.0) g/dL RDW 13.0 (11.5-15.5) % Plt Count 95 L (150-450) k/uL MPV 10.7 Neutrophils % 71 % Lymphocytes % 20 % Monocytes % 6 % Eosinophils % 3 % Basophils % 0 % Neutrophils # 5.9 (1.3-7.7) k/uL Lymphocytes # 1.6 (1.0-4.8) k/uL Monocytes # 0.5 (0-1.0) k/uL Eosinophils # 0.2 (0-0.7) k/uL Basophils # 0.0 (0-0.2) k/uL Manual Slide Review Performed PT 10.7 (10.0-12.5) sec INR 1.0 (<1.2) APTT 27.0 (22.0-30.0) sec Sodium 136 L (137-145) mmol/L Potassium 4.0 (3.5-5.1) mmol/L Chloride 102 (98-107) mmol/L Carbon Dioxide 26 (22-30) mmol/L Anion Gap 8 mmol/L BUN 9 (9-20) mg/dL Creatinine 0.81 (0.66-1.25) mg/dL Est GFR (CKD-EPI)AfAm >90 (>60 ml/min/1.73 sqM) Est GFR (CKD-EPI)NonAf >90 (>60 ml/min/1.73 sqM) Glucose 132 H (74-99) mg/dL Calcium 9.2 (8.4-10.2) mg/dL Magnesium 1.9 (1.6-2.3) mg/dL Total Bilirubin 0.4 (0.2-1.3) mg/dL AST 20 (17-59) U/L ALT 17 (4-49) U/L Alkaline Phosphatase 111 (38-126) U/L Troponin I (0.000-0.034) ng/mL Total Protein 6.4 (6.3-8.2) g/dL Albumin 4.0 (3.5-5.0) g/dL 12/20/23 Range/Units 11:30 WBC (3.8-10.6) k/uL RBC (4.30-5.90) m/uL Hgb (13.0-17.5) gm/dL Hct (39.0-53.0) % MCV (80.0-100.0) fL MCH (25.0-35.0) pg MCHC (31.0-37.0) g/dL RDW (11.5-15.5) % Plt Count (150-450) k/uL MPV Neutrophils % % Lymphocytes % % Monocytes % % Eosinophils % % Basophils % % Neutrophils # (1.3-7.7) k/uL Lymphocytes # (1.0-4.8) k/uL Monocytes # (0-1.0) k/uL Eosinophils # (0-0.7) k/uL Basophils # (0-0.2) k/uL Manual Slide Review PT (10.0-12.5) sec INR (<1.2) APTT (22.0-30.0) sec Sodium (137-145) mmol/L Potassium (3.5-5.1) mmol/L Chloride (98-107) mmol/L Carbon Dioxide (22-30) mmol/L Anion Gap mmol/L BUN (9-20) mg/dL Creatinine (0.66-1.25) mg/dL Est GFR (CKD-EPI)AfAm (>60 ml/min/1.73 sqM) Est GFR (CKD-EPI)NonAf (>60 ml/min/1.73 sqM) Glucose (74-99) mg/dL Calcium (8.4-10.2) mg/dL Magnesium (1.6-2.3) mg/dL Total Bilirubin (0.2-1.3) mg/dL AST (17-59) U/L ALT (4-49) U/L Alkaline Phosphatase (38-126) U/L Troponin I <0.012 (0.000-0.034) ng/mL Total Protein (6.3-8.2) g/dL Albumin (3.5-5.0) g/dL Disposition Clinical Impression: Chest pain, Abnormal stress test Disposition: ADMITTED IP TO THIS HOSP Condition: Fair Referrals: Bianka Hernandez DO [Primary Care Provider] - 1-2 days Time of Disposition: 12:42
[2023-12-20 12:02] LABS: ALT 17 U/L (4-49); AST 20 U/L (17-59); African American GFR (CKD) >90 (>60 ml/min/1.73 sqM); Alkaline Phosphatase 111 U/L (38-126); Anion Gap 8 mmol/L; Blood Urea Nitrogen 9 mg/dL (9-20); Calcium 9.2 mg/dL (8.4-10.2); Carbon Dioxide 26 mmol/L (22-30); Chloride 102 mmol/L (98-107); Glucose 132 mg/dL (74-99); Magnesium 1.9 mg/dL (1.6-2.3); Non-African American GFR(CKD) >90 (>60 ml/min/1.73 sqM); Sodium 136 mmol/L (137-145); Total Bilirubin 0.4 mg/dL (0.2-1.3); Total Protein 6.4 g/dL (6.3-8.2)
[2023-12-20 12:11] LABS: Prothrombin Time 10.7 sec (10.0-12.5)
[2023-12-20 12:16] LABS: Platelet Count 95 k/uL (150-450)
[2023-12-20] MEDS ORDERED: NITROGLYCERIN SL TABS 0.4 MG TAB SUBLINGUAL PRN ×2 (12:42→14:14)
[2023-12-20] MEDS ORDERED: ALPRAZolam 0.25 MG TAB PO PRN (14:14)
[2023-12-20] MEDS ORDERED: ALPRAZolam 0.5 MG TAB PO PRN (14:14)
--- NOTE | 2023-12-20 14:20 | P.CRDCN ---
History of Present Illness History of present illness: HISTORY OF PRESENT ILLNESS: This is a 63-year-old male with a past medical history significant for hypertension, hyperlipidemia, diabetes, nicotine dependence, marijuana use, and daily alcohol use. Patient does not currently follow with a molding line assistant. We have been asked to see the patient in consultation for chest pain. Patient examined at the bedside in the emergency room. Patient's is present. Patient states he has been having chest pain for the past month. He states the pain is mostly with exertion especially when he is out fishing. He states the pain starts in the middle of his chest and radiates to his left armpit. He denies feeling shortness of breath. He does report feeling slightly nauseated when this pain occurs. He states this pain has been happening about 2-3 times a week and each time he takes aspirin and has relief of his discomfort. The patient saw his primary care physician who ordered a nuclear stress test. The patient underwent Lexiscan stress test at the cardiology office on 12/19/2023. Stress test revealed partially reversible inferior wall defect. Patient was called yesterday by Dr. Yañez and recommended to come to the emergency room. However the patient did not present to the emergency room until today. At the time of examination, he denies any chest pain or pressure. He denies shortness of breath. He denies any previous cardiac catheterization. He is a current cigarette smoker and smokes 1 pack/day. He also reports daily alcohol use of liquor and beer. He reports having at least 6 drinks a day. He also reports occasional marijuana use. DIAGNOSTICS: - EKG reveals sinus mechanism with no signs of acute ischemia - Chest xray negative for acute process - Laboratory data: WBC 8.4. Hemoglobin 15.1. Platelet count 95. Sodium 136. Potassium 4.0. BUN 9. Creatinine 0.81. Troponin negative x 1. - Current home cardiac medications include aspirin 325 mg daily, Lipitor 10 mg at night, lisinopril 10 mg daily REVIEW OF SYSTEMS: At the time of my exam: CONSTITUTIONAL: Denies fever or chills. HEENT: Denies blurred vision, vision changes, or eye pain. Denies hemoptysis CARDIOVASCULAR: Denies chest pain. Denies orthopnea. Denies PND. Denies palpitations RESPIRATORY: Denies shortness of breath. GASTROINTESTINAL: Denies abdominal pain. Denies nausea or vomiting. HEMATOLOGIC: Denies bleeding disorders. GENITOURINARY: Denies any blood in urine. SKIN: Denies pruitis. Denies rash. PHYSICAL EXAM: VITAL SIGNS: Reviewed. GENERAL: Well-developed in no acute distress. HEENT: Head is normocephalic. Pupils are equal, round. Sclerae anicteric. Mucous membranes of the mouth are moist. Neck supple. No JVD or thyromegaly LUNGS: Respirations even and unlabored. Lungs essentially clear to auscultation bilaterally. HEART: Regular rate and rhythm. S1 and S2 heard. Systolic murmur noted. ABDOMEN: Soft. Nondistended. Nontender. EXTREMITIES: Normal range of motion. No clubbing or cyanosis. Peripheral pulses intact. Trace right lower extremity edema. NEUROLOGIC: Awake and alert. Oriented x 3. ASSESSMENT: Exertional chest pain x 1 month with abnormal Lexiscan revealing reversible inferior wall defect Hypertension Hyperlipidemia Diabetes Nicotine dependence, patient smokes 1 pack/day Daily alcohol use of at least 6 drinks/day Marijuana use PLAN: Obtain 2D echo to assess cardiac structure and function Begin aspirin 81 mg daily, atorvastatin 80 mg at night, metoprolol tartrate 25 mg twice a day, and Nitropaste 0.5 inch every 8 hours Resume home dose of lisinopril Smoking cessation recommended. Patient to be referred to [place] quit line upon discharge Abstinence from alcohol and marijuana encouraged N.p.o. at midnight Patient to undergo cardiac catheterization tomorrow with Dr. Holcomb Further recommendations pending patient course Nurse practitioner note has been reviewed by physician. Signing provider agrees with the documented findings, assessment, and plan of care documented by FRONT EDGER as a scribe. Past Medical History Past Medical History: No Reported History, Dementia, Hypertension Additional Past Medical History / Comment(s): back pain History of Any Multi-Drug Resistant Organisms: None Reported Past Surgical History: Back Surgery, Ear Surgery Past Psychological History: No Psychological Hx Reported Smoking Status: Current every day smoker Past Alcohol Use History: Occasional Past Drug Use History: None Reported, Marijuana Medications and Allergies Home Medications Medication Instructions Recorded Confirmed Type sitaGLIPtin PHOS/metFORMIN HCL 1 tab PO BID 02/12/18 12/20/23 History [Janumet 50-1,000 mg Tablet] Aspirin 325 mg PO DAILY 06/07/19 12/20/23 History Atorvastatin [Lipitor] 10 mg PO HS 12/20/23 12/20/23 History Sildenafil Citrate [Viagra] 100 mg PO DAILY PRN 12/20/23 12/20/23 History lisinopriL [Zestril] 10 mg PO DAILY 12/20/23 12/20/23 History Allergies Allergy/AdvReac Type Severity Reaction Status Date / Time No Known Allergies Allergy Verified 12/20/23 13:03 Physical Exam Vitals: Vital Signs Temp Pulse Resp BP Pulse Ox 12/20/23 12:27 66 18 146/78 97 12/20/23 11:06 97 F L 72 18 142/72 98 Intake and Output 12/19/23 12/20/23 12/20/23 22:59 06:59 14:59 Other: Weight 108.862 kg Results 12/20/23 11:30 12/20/23 11:30 Cardiac Enzymes 12/20/23 12/20/23 Range/Units 11:30 11:30 AST 20 (17-59) U/L Troponin I <0.012 (0.000-0.034) ng/mL Coagulation 12/20/23 Range/Units 11:30 PT 10.7 (10.0-12.5) sec APTT 27.0 (22.0-30.0) sec CBC 12/20/23 Range/Units 11:30 WBC 8.4 (3.8-10.6) k/uL RBC 4.80 (4.30-5.90) m/uL Hgb 15.3 (13.0-17.5) gm/dL Hct 46.3 (39.0-53.0) % Plt Count 95 L (150-450) k/uL Comprehensive Metabolic Panel 12/20/23 Range/Units 11:30 Sodium 136 L (137-145) mmol/L Potassium 4.0 (3.5-5.1) mmol/L Chloride 102 (98-107) mmol/L Carbon Dioxide 26 (22-30) mmol/L BUN 9 (9-20) mg/dL Creatinine 0.81 (0.66-1.25) mg/dL Glucose 132 H (74-99) mg/dL Calcium 9.2 (8.4-10.2) mg/dL AST 20 (17-59) U/L ALT 17 (4-49) U/L Alkaline Phosphatase 111 (38-126) U/L Total Protein 6.4 (6.3-8.2) g/dL Albumin 4.0 (3.5-5.0) g/dL Current Medications Generic Name Dose Route Start Last Admin Trade Name Freq PRN Reason Stop Dose Admin Aspirin 81 mg 12/21/23 09:00 Aspirin 81 Mg PO DAILY [facility] Atorvastatin Calcium 80 mg 12/20/23 21:00 Atorvastatin 80 Mg Tab PO HS [facility] Lisinopril 10 mg 12/21/23 09:00 Lisinopril 10 Mg Tab PO DAILY [facility] Metoprolol Tartrate 25 mg 12/20/23 21:00 Metoprolol Tartrate 25 Mg Tab PO BID [facility] Nitroglycerin 0.4 mg 12/20/23 12:42 Nitroglycerin Sl Tabs 0.4 Mg Tab SUBLINGUAL Q5M PRN Chest Pain Nitroglycerin 0.5 inch 12/20/23 14:15 Nitroglycerin Oint 1 Inch/Gm Packet TOPICAL Q8H [facility] Intake and Output 12/19/23 12/20/23 12/20/23 22:59 06:59 14:59 Other: Weight 108.862 kg Patient Weight 12/21/23 06:59 Weight 108.862 kg 12/20/23 11:30 12/20/23 11:30
[2023-12-20] MEDS: NITROGLYCERIN OINT 1 INCH/GM PACKET TOPICAL SCH (14:42)
[2023-12-20] MEDS: ACETAMINOPHEN TAB 325 MG TAB PO PRN (15:32)
--- NOTE | 2023-12-20 19:52 | P.HPIM ---
History of Present Illness This is a pleasant 63 years old male who presents because of pain below his left arm about 6/10 but now is resolved. Is been going on for 1 month but with no specific reason he came to the hospital most likely secondary to worsening. He denies shortness of breath or coughing, no specific GI or symptoms. No dizziness or weakness. He smokes about 1 pack/day and he was counseled to quit and he agrees and agrees to the nicotine patch He drinks alcohol without specification but he says is not daily. He uses marijuana as well. On admission he has negative troponin x 3 and all labs were unremarkable. Also he is afebrile. EKG showing sinus rhythm at [address]-T changes, he was unremarkable chest x-ray. He is currently on heparin drip and aspirin Review of Systems Review of systems CONSTITUTIONAL: No fever, no malaise, no fatigue. HEENT: No recent visual problems or hearing problems. Denied any sore throat. CARDIOVASCULAR: No orthopnea, PND, no palpitations, no syncope. PULMONARY: No shortness of breath, no cough, no hemoptysis. GASTROINTESTINAL: No diarrhea, no nausea, no vomiting, no abdominal pain. Normoactive bowel sounds. NEUROLOGICAL: No headaches, no weakness, no numbness. HEMATOLOGICAL: Denies any bleeding or petechiae. GENITOURINARY: Denies any burning micturition, frequency, or urgency. MUSCULOSKELETAL/RHEUMATOLOGICAL: Denies any joint pain, swelling, or any muscle pain. ENDOCRINE: Denies any polyuria or polydipsia. Past Medical History Past Medical History: No Reported History, Dementia, Hypertension Additional Past Medical History / Comment(s): back pain History of Any Multi-Drug Resistant Organisms: None Reported Past Surgical History: Back Surgery, Ear Surgery Past Psychological History: No Psychological Hx Reported Smoking Status: Current every day smoker Past Alcohol Use History: Occasional Past Drug Use History: None Reported, Marijuana Medications and Allergies Home Medications Medication Instructions Recorded Confirmed Type sitaGLIPtin PHOS/metFORMIN HCL 1 tab PO BID 02/12/18 12/20/23 History [Janumet 50-1,000 mg Tablet] RX: Aspirin 325 mg PO DAILY 06/07/19 12/20/23 History Atorvastatin [Lipitor] 10 mg PO HS 12/20/23 12/20/23 History Sildenafil Citrate [Viagra] 100 mg PO DAILY PRN 12/20/23 12/20/23 History lisinopriL [Zestril] 10 mg PO DAILY 12/20/23 12/20/23 History Allergies Allergy/AdvReac Type Severity Reaction Status Date / Time No Known Allergies Allergy Verified 12/20/23 13:03 Physical Exam Vitals: Vital Signs Temp Pulse Pulse Resp BP BP Pulse Ox 12/20/23 18:22 97.8 F 64 16 144/78 97 12/20/23 18:00 61 20 132/77 97 12/20/23 14:41 62 22 156/92 98 12/20/23 12:27 66 18 146/78 97 12/20/23 11:06 97 F L 72 18 142/72 98 Intake and Output 12/20/23 12/20/23 12/20/23 06:59 14:59 22:59 Other: Weight 108.862 kg GENERAL: The patient is alert and oriented x3, not in any acute distress. Well developed, well nourished. HEENT: Pupils are round and equally reacting to light. EOMI. No scleral icterus. No conjunctival pallor. Normocephalic, atraumatic. No pharyngeal erythema. No thyromegaly. CARDIOVASCULAR: S1 and S2 present. No murmurs, rubs, or gallops. PULMONARY: Chest is clear to auscultation, no wheezing , no crackles. ABDOMEN: Soft, nontender, nondistended, normoactive bowel sounds. No palpable organomegaly. MUSCULOSKELETAL: No joint swelling or deformity. EXTREMITIES: No cyanosis, clubbing, or pedal edema. NEUROLOGICAL: Gross neurological examination did not reveal any focal deficits. SKIN: No rashes. no petechiae. Results CBC & Chem 7: 12/20/23 11:30 12/20/23 11:30 Labs: Abnormal Lab Results - Last 24 Hours (Table) 12/20/23 12/20/23 Range/Units 11:30 11:30 Plt Count 95 L (150-450) k/uL Sodium 136 L (137-145) mmol/L Glucose 132 H (74-99) mg/dL Assessment and Plan Assessment: Unstable angina with significant risk factors plan for cardiac cath on 12/20 Hypertension Hyperlipidemia Diabetes mellitus Nicotine dependence Alcohol use disorder Marijuana Obesity with BMI of 32.5 Plan: Continue with heparin drip Continue with aspirin and statin Continue with beta-devyn and TRACIE inhibitor Cardiology team on the case Cardiac cath on 12/20 Patient counseled to quit drinking and smoking, he agrees to the nicotine patch which is ordered Further recommendation based on the clinical course GI prophylaxis Pepcid DVT prophylaxis heparin Prognosis guarded
[2023-12-20 20:26] LABS: Glucose,Whole Blood 91 mg/dL (70-110)
[2023-12-20] MEDS: ATORVASTATIN 80 MG TAB PO SCH (22:15)
[2023-12-20] MEDS: METOPROLOL TARTRATE 25 MG TAB PO SCH (22:19)
[2023-12-21] MEDS: SODIUM CHLORIDE 0.9% 1,000 ML in EMPTY BAG 1 BAG IV SCH (01:12)
[2023-12-21] MEDS: ASPIRIN 325 MG TAB PO ONE (04:33)
[2023-12-21] MEDS: ATORVASTATIN 80 MG TAB PO ONE (04:33)
[2023-12-21 06:06] LABS: Glucose,Whole Blood 100 mg/dL (70-110)
[2023-12-21] MEDS: ASPIRIN 81 MG PO SCH (08:28)
[2023-12-21] MEDS: lisinopriL 10 MG TAB PO SCH (08:29)
[2023-12-21 08:50] LABS: Chol/HDL Ratio 2.88 Ratio; LDL Cholesterol,Calculated 87.5 mg/dL (0.0-131.0); VLDL Calculation 16.22 mg/dL (5.00-40.00)
[2023-12-21] MEDS ORDERED: ASPIRIN 325 MG TAB PO SCH (09:00)
[2023-12-21] MEDS: IV FLUID CONTINUATION 1,000 ML IV ONE (09:18)
[2023-12-21] MEDS: HEPARIN SODIUM,PORCINE (1 ML) 2,500 UNIT in SODIUM CHLORIDE 0.9% 250 ML IRRIGATION PRN (09:21)
[2023-12-21] MEDS: HEPARIN SODIUM,PORCINE 10,000 UNIT in SODIUM CHLORIDE 0.9% 1,000 ML IRRIGATION PRN (09:21)
[2023-12-21] MEDS: MIDAZOLAM 2 MG/2 ML VIAL IVP ONE (09:32)
[2023-12-21] MEDS: fentaNYL (PF) 50 MCG/1 ML VIAL IVP ONE (09:32)
[2023-12-21] MEDS: LIDOCAINE 1% INJ 10MG/ML (20 ML MDV) SQ ONE (09:34)
[2023-12-21] MEDS: VERAPAMIL SYRINGE (5 MG/10 ML) INTRAARTER ONE (09:37)
[2023-12-21] MEDS: HEPARIN SODIUM 1,000 UN/ML (10ML VL) IVP ONE (09:42)
[2023-12-21] MEDS: SODIUM CHLORIDE 0.9% 500 ML 500 ML IV ONE (10:02)
[2023-12-21] MEDS: IOPAMIDOL-370 100ML BTL INJ ONE ×2 (10:24→10:46)
[2023-12-21] MEDS ORDERED: RX INFO: IV CONTRAST WAS GIVEN 1 EACH MISC MISCELLANE PRN (10:44)
--- NOTE | 2023-12-21 13:20 | P.PCN ---
Date of Procedure: 12/21/23 Operative Findings: Coronary physiology report Performing physician Juan Rojas MD Procedure performed IFR of the LCx Indication Symptomatic 63-year-old gentleman who underwent a heart catheterization by Dr. Holcomb and was found to have intermediate to severe disease involving the mid left circumflex Approach Right radial artery Complication None Level of sedation Moderate with sedation length of 28 minutes Procedure description Please refer to diagnostic heart catheterization was performed by Dr. Holcomb earlier today. After zeroing Dobler wire and equalizing between the Doppler wire and guiding catheter which was JL 4.5 guiding catheter the left main was engaged and the LCx was wired. We did an IFR and that came in to be at 0.91 which is nonischemic. 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
--- NOTE | 2023-12-21 13:23 | CC ---
CARDIAC CATHETERIZATION REPORT INDICATION: A 63-year-old gentleman who was admitted to hospital with symptoms of new onset exertional angina and abnormal stress test showing ischemia involving inferior wall. PROCEDURE NOTE: After obtaining informed consent, left heart catheterization and coronary angiogram were performed via the right radial artery using standard Criss catheters. The patient tolerated the procedure well without any obvious immediate complications. The left coronary artery was engaged using a size 4 and 4.5 Criss catheters. The patient received moderate conscious sedation. Total sedation time was 27 minutes. Radial artery access was obtained using Seldinger technique, 6-Welsh sheath was placed. Catheters and wires were floated into the ascending aorta under fluoroscopic guidance. FINDINGS: 1. HEMODYNAMICS: Left ventricular end-diastolic pressure is 18 mm. There is no significant gradient across the aortic valve. 2. LEFT VENTRICULOGRAM: Left ventriculogram is not performed. 3. ANGIOGRAPHIC DATA: a.Right coronary artery: Right coronary artery is a small caliber nondominant vessel that shows mild diffuse nonobstructive disease. Left main coronary artery is a short vessel, divides into left anterior descending coronary artery and circumflex coronary artery. Vessel appears calcified. There is mild 30% to 40% stenosis involving mid LAD. Circumflex coronary artery is a large dominant vessel that gives off 2 large caliber OM branches and just prior to the origin of the 2nd OM branch, there is a 70% stenosis noted. 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 PLAN: I am going to ask Dr. Rojas to review the angiographic data and advise on angioplasty of the circumflex coronary artery. If necessary, we will perform an IFR to further confirm the hemodynamic significance of the circumflex coronary artery. MMODL / IJN: [id number] /
[2023-12-21] MEDS: SODIUM CHLORIDE 0.9% 1,000 ML IV SCH (13:56)
--- NOTE | 2023-12-21 14:24 | CA ---
Transthoracic Echo Report Name: Ray Mcpherson Age: 63 Gender: M : 1960 Exam Date: 12/20/2023 16:29 Exam Location: [facility] Ht (in): 72 Wt (lb): 240 Ordering Physician: Robyn Fabian Attending/Referring Phys: [id number], Caren Mid Level Clinician Aditi Vazquez RDCS Procedure CPT: Indications: CP, LV function, recent abnormal kyler Cardiac Hx: Technical Quality: Technically difficult study Contrast 1: Definity Total Dose (mL): 2 Contrast 2: Total Dose (mL): MEASUREMENTS (Male / Female) Normal Values 2D ECHO LV Diastolic Diameter PLAX 5.0 cm 4.2 - 5.9 / 3.9 - 5.3 cm LV Systolic Diameter PLAX 2.3 cm IVS Diastolic Thickness 1.4 cm 0.6 - 1.0 / 0.6 - 0.9 cm LVPW Diastolic Thickness 1.4 cm 0.6 - 1.0 / 0.6 - 0.9 cm LV Relative Wall Thickness 0.6 RV Internal Dim ED PLAX 3.8 cm LV Diastolic Volume MOD BP 95.7 cm??? 67 - 155 / 56 - 104 cm??? LV Systolic Volume MOD BP 32.4 cm??? 22 - 58 / 19 - 49 cm??? LV Ejection Fraction MOD BP 66.1 % >= 55 % LV Cardiac Index MOD BP 1805.0 cm???/min???m??? LV Diastolic Volume MOD 4C 118.0 cm??? LV Systolic Volume MOD 4C 29.8 cm??? LV Ejection Fraction MOD 4C 74.7 % LV Cardiac Index MOD 4C 2517.0 cm???/min???m??? LV Diastolic Length 4C 9.0 cm LV Systolic Length 4C 6.9 cm LV Diastolic Volume MOD 2C 67.5 cm??? LV Systolic Volume MOD 2C 32.7 cm??? LV Ejection Fraction MOD 2C 51.6 % LV Cardiac Index MOD 2C 993.5 cm???/min???m??? LV Diastolic Length 2C 7.6 cm LV Systolic Length 2C 6.3 cm LA Volume 90.8 cm??? 18 - 58 / 22 - 52 cm??? LA Volume Index 38.1 cm???/m??? 16 - 28 cm???/m??? M-MODE Aortic Root Diameter MM 4.0 cm LA Systolic Diameter MM 3.0 cm LA Ao Ratio MM 0.7 AV Cusp Separation MM 1.9 cm DOPPLER AV Peak Velocity 174.1 cm/s AV Peak Gradient 12.1 mmHg AV Mean Velocity 122.4 cm/s AV Mean Gradient 6.8 mmHg AV Velocity Time Integral 34.5 cm LVOT Peak Velocity 115.2 cm/s LVOT Peak Gradient 5.3 mmHg LVOT Velocity Time Integral 23.2 cm MV Area PHT 3.9 cm??? Mitral E Point Velocity 99.9 cm/s Mitral A Point Velocity 81.3 cm/s Mitral E to A Ratio 1.2 MV Deceleration Time 193.1 ms MV E' Velocity 9.0 cm/s Mitral E to MV E' Ratio 11.0 TR Peak Velocity 171.2 cm/s TR Peak Gradient 11.7 mmHg Right Ventricular Systolic Press 16.7 mmHg FINDINGS Left Ventricle Moderately increased left ventricular wall thickness. Left ventricular cavity size normal. Normal left ventricular systolic function with no obvious regional wall motion abnormalities. Left ventricular ejection fraction is estimated at 55 %. Grade 1 diastolic dysfunction. Right Ventricle Mild right ventricular dilatation. Right ventricular systolic pressure within normal limits. Right Atrium Normal right atrial size. Left Atrium Moderately increased left atrial volume. Mildly increased left atrial area. Mitral Valve Structurally normal mitral valve. Mitral annular calcification. Mild-to- moderate mitral regurgitation. Centrally directed mitral regurgitation jet. Aortic Valve Trileaflet aortic valve. No aortic valve stenosis or regurgitation. Aortic valve sclerosis. Tricuspid Valve Structurally normal tricuspid valve. Mild tricuspid regurgitation. Pulmonic Valve Structurally normal pulmonic valve. Pericardium No pericardial effusion. Aorta Normal size aortic root and proximal ascending aorta. CONCLUSIONS Left ventricular ejection fraction 55% Moderately increased left ventricular wall thickness RVSP 16 Mild to moderate mitral regurgitation Mild tricuspid regurgitation Previewed by: Dr. Frederick Madrid DO (Electronically Signed) Final Date: 21 December 2023 14:23
[2023-12-21 17:33] VITALS: BP 144/80; PULSE 64; RESP 17; TEMP 97.5
--- NOTE | 2023-12-21 23:02 | P.DS ---
Providers Date of admission: 12/20/23 14:49 Attending physician: Teofilo Dixon MD Consults: 12/20/23 12:43 Consult Physician Urgent Consulting Provider: Pedrito Holcomb Consult Reason/Comments: Abnormal stress test Do you want consulting provider notified?: Yes Primary care physician: Bianka Newsome Hospital Course: Diagnoses: Unstable angina with significant risk factors, cardiac cath on 12/20 shows questionable area of reversibility, cardiology team recommended to treat medically for now Hypertension Hyperlipidemia Diabetes mellitus Nicotine dependence Alcohol use disorder Marijuana Obesity with BMI of 32.5 Hospital course: This is a pleasant 63 years old male who presents because of pain below his left arm about 6/10 but now is resolved. Is been going on for 1 month but with no specific reason he came to the hospital most likely secondary to worsening. Patient had cardiac cath today, the result was nonconclusive and there was still suspicion of ischemia, this was followed by another procedure with Dr. Arshad with flow limitations study shows nonischemic results, therefore patient was cleared for discharge by cardiology team. Patient informs he feels better no chest pain no shortness of breath no other new complaint. He was eager to go home today. Problems and management plan were discussed with the patient and he verbalized understanding and acceptance Patient was found stable and can be discharged home in guarded prognosis however he needs follow-up as an outpatient. Patient was instructed to follow up with PCP Dr. Newsome within one week and patient agrees Patient was instructed to follow-up with his resourcing consultant Dr. Ledezma Physical exam Gen: patient is a AAOx3, no distress CVS: S1-S2, RRR, no murmur Lungs: B/L CTA, no wheezing Abdomen: soft, no distention, no tenderness, positive bowel sounds Extremity: no leg edema or induration Time spent more than 35 minutes t Patient Condition at Discharge: Fair Plan - Discharge Summary Discharge Rx Participant: No New Discharge Prescriptions: New Metoprolol Tartrate [Lopressor] 25 mg PO BID #60 tab Atorvastatin [Lipitor] 80 mg PO HS #30 tab Continue sitaGLIPtin PHOS/metFORMIN HCL [Janumet 50-1,000 mg Tablet] 1 tab PO BID Aspirin 325 mg PO DAILY lisinopriL [Zestril] 10 mg PO DAILY Discontinued Sildenafil Citrate [Viagra] 100 mg PO DAILY PRN PRN Reason: SEXUAL INTERCOURSE Atorvastatin [Lipitor] 10 mg PO HS Discharge Medication List sitaGLIPtin PHOS/metFORMIN HCL [Janumet 50-1,000 mg Tablet] 1 tab PO BID 02/12/18 [History] Aspirin 325 mg PO DAILY 06/07/19 [History] lisinopriL [Zestril] 10 mg PO DAILY 12/20/23 [History] Atorvastatin [Lipitor] 80 mg PO HS #30 tab 12/21/23 [Rx] Metoprolol Tartrate [Lopressor] 25 mg PO BID #60 tab 12/21/23 [Rx] Follow up Appointment(s)/Referral(s): Juan Rojas MD [STAFF PHYSICIAN] - 1 Week Bianka Newsome DO [Primary Care Provider] - 1-2 days Patient Instructions/Handouts: After Radial Heart Catheterization (GEN) Activity/Diet/Wound Care/Special Instructions: heart healthy diet Activity is restricted till you see your doctor Discharge Disposition: HOME SELF-CARE
== END 2023-12-21 18:30 | disposition home or self-care (01) ==
LOC: EC 10:57 → 6NMEDSUR 14:49
PROVIDERS: ADMIT Internal Medicine; ATTEND Internal Medicine
DX: I20.0 Unstable angina (principal); I10 Essential (primary) hypertension; E78.5 Hyperlipidemia, unspecified; E11.9 Type 2 diabetes mellitus without complications; E66.9 Obesity, unspecified; J44.9 Chronic obstructive pulmonary disease, unspecified; F17.210 Nicotine dependence, cigarettes, uncomplicated; Z68.32 Body mass index [BMI] 32.0-32.9, adult; Z79.82 Long term (current) use of aspirin; Z79.84 Long term (current) use of oral hypoglycemic drugs; Z79.899 Other long term (current) drug therapy
CPT/HCPCS: 99285; 36415; 93005; 93306; 93458; 93799; 80061; 80053; 83735; 84484; 85025; 85610; 85730; 83036; 71046; G0378 ×2; C1887; C1769 ×2; C1894; J2250; J1644 ×3; J2003; Q9957; Q9967; J3010

== ENCOUNTER → 2024-01-09 | Outpatient (CLI) | payer MEDICARE, BC ==
[2024-01-09 15:18] LABS: ALT 21 U/L (10-49); AST 19 U/L (14-35); Chol/HDL Ratio 2.44 Ratio; LDL Cholesterol,Calculated 50.6 mg/dL (0.0-131.0); VLDL Calculation 16.04 mg/dL (5.00-40.00)
== END | disposition home or self-care (01) ==
LOC: LABWHC1 10:32
PROVIDERS: ATTEND Internal Medicine Cardiovascular Disease
DX: E78.2 Mixed hyperlipidemia (principal)
CPT/HCPCS: 36415; 80061; 84450; 84460

== ENCOUNTER 2024-05-06 06:09 | Emergency (ER) | payer BC, MEDICARE ==
--- NOTE | 2024-05-06 07:05 | XR ---
EXAMINATION TYPE: XR chest 2V DATE OF EXAM: 05/06/2024 6:54 AM COMPARISON: 12/20/2023 CLINICAL INDICATION: Male, 64 years old with history of cough: Shortness of breath TECHNIQUE: XR chest 2V views of the chest are obtained. FINDINGS: Scattered senescent parenchymal changes noted. Hyperinflation compatible with COPD. No evidence for infiltrate. No evidence for atelectasis. Heart size is stable. Mediastinal structures are stable and grossly unremarkable. No evidence for hilar prominence. Degenerative changes dorsal spine. IMPRESSION: 1. No evidence for acute pulmonary disease. [facility], , 05/06/2024 7:03 AM
[2024-05-06 07:16] LABS: Influenza A Detected (Not Detectd); Influenza B Not Detected (Not Detectd); RSV Not Detected (Not Detectd)
--- NOTE | 2024-05-06 07:21 | ED ---
Fever HPI - General Chief Complaint: Fever Stated Complaint: Cough, Shortness of Breath, Chest Pain Time Seen by Provider: 05/06/24 06:10 Source: patient, RN notes reviewed Mode of arrival: ambulatory Limitations: no limitations - History of Present Illness Initial Comments: 64-year-old male presents emergency department chief plaint of cough and cold-li ke symptoms symptoms started a weekend. Patient states that he has bodyaches fevers chills pain in his ribs from coughing. Patient denies any nausea vomit diarrhea constipation patient states that his brother is also sick. He denies any palpitations no neck pain or neck stiffness. - Related Data Home Medications Medication Instructions Recorded Confirmed sitaGLIPtin PHOS/metFORMIN HCL 1 tab PO BID 02/12/18 12/20/23 [Janumet 50-1,000 mg Tablet] Aspirin 325 mg PO DAILY 06/07/19 12/20/23 lisinopriL [Zestril] 10 mg PO DAILY 12/20/23 12/20/23 Previous Rx's Medication Instructions Recorded Atorvastatin [Lipitor] 80 mg PO HS #30 tab 12/21/23 Metoprolol Tartrate [Lopressor] 25 mg PO BID #60 tab 12/21/23 Oseltamivir [Tamiflu] 75 mg PO Q12HR #10 cap 05/06/24 Allergies Allergy/AdvReac Type Severity Reaction Status Date / Time No Known Allergies Allergy Verified 05/06/24 06:18 Review of Systems ROS Statement: Those systems with pertinent positive or pertinent negative responses have been documented in the HPI. ROS Other: All systems not noted in ROS Statement are negative. Past Medical History Past Medical History: Diabetes Mellitus, Hypertension Additional Past Medical History / Comment(s): back pain History of Any Multi-Drug Resistant Organisms: None Reported Past Surgical History: Back Surgery, Ear Surgery, Heart Catheterization With Stent Past Anesthesia/Blood Transfusion Reactions: No Reported Reaction Past Psychological History: No Psychological Hx Reported Smoking Status: Current every day smoker Past Alcohol Use History: Occasional Past Drug Use History: Marijuana General Exam Limitations: no limitations General appearance: alert, in no apparent distress Head exam: Present: atraumatic, normocephalic, normal inspection Eye exam: Present: normal appearance, PERRL, EOMI. Absent: scleral icterus, conjunctival injection, periorbital swelling ENT exam: Present: normal exam, mucous membranes moist Neck exam: Present: normal inspection, full ROM. Absent: tenderness, meningismu s, lymphadenopathy Respiratory exam: Present: normal lung sounds bilaterally. Absent: respiratory distress, wheezes, rales, rhonchi, stridor Cardiovascular Exam: Present: regular rate, normal rhythm, normal heart sounds. Absent: systolic murmur, diastolic murmur, rubs, gallop, clicks GI/Abdominal exam: Present: soft, normal bowel sounds. Absent: distended, tenderness, guarding, rebound, rigid Course Vital Signs 05/06/24 06:19 Temperature 99.0 F Pulse Rate 66 Respiratory 18 Rate Blood Pressure 156/92 O2 Sat by Pulse 94 L Oximetry Medical Decision Making - Medical Decision Making Was pt. sent in by a medical professional or institution (, PA, TECHNICAL MANAGER [employer], urgent care, hospital, or [facility]...) When possible be specific @ -No Did you speak to anyone other than the patient for history (EMS, parent, family, police, friend...)? What history was obtained from this source @ -No Did you review nursing and triage notes (agree or disagree)? Why? @ -I reviewed and agree with nursing and triage notes Were old charts reviewed (outside hosp., previous admission, EMS record, old EKG, old radiological studies, urgent care reports/EKG's, [facility] records)? Report findings @ -No old charts were reviewed Differential Diagnosis (chest pain, altered mental status, abdominal pain women, abdominal pain men, vaginal bleeding, weakness, fever, dyspnea, syncope, headache, dizziness, GI bleed, back pain, seizure, CVA, palpatations, mental health, musculoskeletal)? @ -COVID 19, RSV, influenza, pneumonia, acute bronchitis, URI, this list is not all inclusive EKG interpreted by me (3pts min.). @ -None X-rays interpreted by me (1pt min.). @ -Chest x-ray shows no acute cardiopulmonary process. CT interpreted by me (1pt min.). @ -None done U/S interpreted by me (1pt. min.). @ -None done What testing was considered but not performed or refused? (CT, X-rays, U/S, labs)? Why? @ -None What meds were considered but not given or refused? Why? @ -None Did you discuss the management of the patient with other professionals (professionals i.e. , PA, TECHNICAL MANAGER [employer], lab, RT, psych nurse, rn social work, data keyer, teacher, account officer, casework manager)? Give summary @ -No Was smoking cessation discussed for >3mins.? @ -No Was critical care preformed (if so, how long)? @ -No Were there social determinants of health that impacted care today? How? (Homelessness, low income, unemployed, alcoholism, drug addiction, transportation, low edu. Level, literacy, decrease access to med. care, usp, rehab)? @ -No Was there de-escalation of care discussed even if they declined (Discuss DNR or withdrawal of care, Hospice)? DNR status @ -No What co-morbidities impacted this encounter? (DM, HTN, Smoking, COPD, CAD, Cancer, CVA, ARF, Chemo, Hep., AIDS, mental health diagnosis, sleep apnea, morbid obesity)? @ -None Was patient admitted / discharged? Hospital course, mention meds given and route, prescriptions, significant lab abnormalities, going to OR and other pertinent info. @ -Discharge patient has influenza A. Patient discharged with Tamiflu patient will continue antipyretics and return parameters wero. Undiagnosed new problem with uncertain prognosis? @ -No Drug Therapy requiring intensive monitoring for toxicity (Heparin, Nitro, Insulin, Cardizem)? @ -No Were any procedures done? @ -No Diagnosis/symptom? @ -Influenza A Acute, or Chronic, or Acute on Chronic? @ -Acute Uncomplicated (without systemic symptoms) or Complicated (systemic symptoms)? @ -Uncomplicated Side effects of treatment? @ -No Exacerbation, Progression, or Severe Exacerbation? @ -No Poses a threat to life or bodily function? How? (Chest pain, [place], [place], pneumonia, PE, COPD, DKA, ARF, appy, cholecystitis, CVA, Diverticulitis, Homicidal, Suicidal, threat to staff... and all critical care pts) @ -No - Lab Data Lab Results 05/06/24 Range/Units 06:22 Influenza Type A (PCR) Detected A (Not Detectd) Influenza Type B (PCR) Not Detected (Not Detectd) RSV (PCR) Not Detected (Not Detectd) SARS-CoV-2 (PCR) Not Detected (Not Detectd) - EKG Data -: EKG Interpreted by Me EKG Comments: EKG performed at 6: 28 sinus rhythm rate of 71 ND 156 QRS 101 QT/QTc 346/368 Disposition Clinical Impression: Influenza A Disposition: HOME SELF-CARE Condition: Stable Instructions (If sedation given, give patient instructions): Influenza (ED) Additional Instructions: Please return to the Emergency Department if symptoms worsen or any other concerns. Prescriptions: Oseltamivir [Tamiflu] 75 mg PO Q12HR #10 cap Is patient prescribed a controlled substance at d/c from ED?: No Referrals: Bianka Hernandez DO [Primary Care Provider] - 1-2 days Time of Disposition: 07:21
[2024-05-06] MEDS: ACETAMINOPHEN TAB 500 MG TAB PO STA (07:58)
[2024-05-06] MEDS: IPRATROPIUM-ALBUTEROL 3 ML NEB INHALATION STA (08:43)
[2024-05-06 09:13] VITALS: BP 135/69; PULSE 62; RESP 18; TEMP 99.2
== END 2024-05-06 09:13 | disposition home or self-care (01) ==
LOC: EC 06:09
DX: J10.1 Influenza due to other identified influenza virus with other respiratory manifestations (principal); F17.200 Nicotine dependence, unspecified, uncomplicated
CPT/HCPCS: 71046; 87636; 93005; 94640; 99285